=== PATIENT | female | born 1985 | race Caucasian/White ===

== ENCOUNTER 2017-07-15 21:29 | Emergency (ER) | payer OTHER ==
[~2017-07-15] VITALS: Ht 170.2 cm; Wt 77.6 kg
[2017-07-15] MEDS ORDERED: PRENATAL MULTI1 EAC3 PO (21:47)
[2017-07-15] MEDS ORDERED: VENTOLIN HFA18 GM INH (21:47)
== END 2017-07-15 22:29 | disposition home or self-care (01) ==
LOC: ED 21:29
DX: O99.712 Diseases of the skin and subcutaneous tissue complicating pregnancy, second trimester (principal); L29.9 Pruritus, unspecified; O99.342 Other mental disorders complicating pregnancy, second trimester; F31.9 Bipolar disorder, unspecified; F32.9 Major depressive disorder, single episode, unspecified; F41.9 Anxiety disorder, unspecified; O99.332 Smoking (tobacco) complicating pregnancy, second trimester; F17.200 Nicotine dependence, unspecified, uncomplicated; Z88.0 Allergy status to penicillin; Z88.1 Allergy status to other antibiotic agents; Z88.8 Allergy status to other drugs, medicaments and biological substances; Z79.899 Other long term (current) drug therapy; Z3A.20 20 weeks gestation of pregnancy
CPT/HCPCS: 99282

== ENCOUNTER 2023-09-24 21:25 | Emergency (ER) | payer OTHER ==
[~2023-09-24] VITALS: Ht 172.7 cm; Wt 87.0 kg
[~2023-09-24 21:25] MED LIST: PRENATAL MULTI1 EAC3 PO; VENTOLIN HFA18 GM INH
--- OUTSIDE RECORDS SUMMARY | 2023-09-24 21:26 | XMS ---
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 [place] VISIT COUNT (12 MO.) [address] [address] FILOMENA Ramírez TOTAL 14 NOTE: Visits indicate total known visits. ED/UCC VISIT TRACKING (12 MO.) 09/24/2023 21:26 [facility] [place] TYPE: Emergency COMPLAINT: - RT WRIST PAIN 09/24/2023 18:25 [email or web address] OR TYPE: Emergency DIAGNOSES: - Contusion of right forearm, initial encounter - r wrist pain 09/16/2023 11:47 [facility] DIAGNOSES: - Contusion of right upper arm, initial encounter - R ARM PAIN 09/13/2023 13:41 [facility] OR TYPE: Emergency DIAGNOSES: - Headache, unspecified - leg numbess, migraine 08/07/2023 13:54 [facility] OR TYPE: Emergency DIAGNOSES: - Pain in right hand - R HAND INJURY, TINGLING 07/06/2023 21:00 [facility] OR TYPE: Emergency DIAGNOSES: - Contusion of left knee, initial encounter - Strain of muscle, fascia and tendon of left hip, initial encounter - Unspecified sprain of left elbow, initial encounter - ELBOW INJURY 03/23/2023 15:31 [facility] [place] TYPE: Emergency DIAGNOSES: - Acute upper respiratory infection, unspecified - FATIGUE 03/21/2023 00:00 [facility] [place] TYPE: Emergency DIAGNOSES: - Diffuse otitis externa, left ear - Ear Pain 03/08/2023 17:26 [facility] TYPE: Emergency DIAGNOSES: - Strain of unspecified muscle, fascia and tendon at shoulder and upper arm level, left arm, initial encounter - Shoulder Injury 02/07/2023 16:35 [facility] TYPE: Emergency DIAGNOSES: - Acute nasopharyngitis [common cold] - LIGHT HEADED TINGLING HAND AND MOUTH FATIGUE 01/31/2023 21:24 [facility] [place] TYPE: Emergency DIAGNOSES: - Disorder of kidney and ureter, unspecified - Left lower quadrant pain - Abdominal Pain 01/19/2023 16:44 [email or web address] [place] TYPE: Emergency DIAGNOSES: - Other muscle spasm - NECK PAIN 12/21/2022 11:44 [facility] OR TYPE: Emergency DIAGNOSES: - Contusion of left ankle, subsequent encounter - LEFT ANKLE PAIN 12/08/2022 16:09 [facility] OR TYPE: Emergency DIAGNOSES: - Contusion of left ankle, initial encounter - L ANKLE INJURY INPATIENT VISIT TRACKING (12 MO.) No inpatient visits to display in this time frame [id number]
[2023-09-24] MEDS ORDERED: VENTOLIN HFA18 GM INH (21:46)
[2023-09-24] MEDS ORDERED: CETIRIZINE HCL10 MG PO (21:46)
[2023-09-24] MEDS ORDERED: LEXAPRO20 MG PO (21:46)
[2023-09-24] MEDS ORDERED: HYDROCODONE/ACETA 5/325 TAB PO ONE (22:00)
[2023-09-24] MEDS ORDERED: TRAMADOL HCL50 MG PO (22:39)
[2023-09-24] MEDS ORDERED: TRAMADOL HCL 50 MG HOME.PACK PO ONE (22:45)
[2023-09-24 22:55] VITALS: BP 120/87
== END 2023-09-24 22:55 | disposition home or self-care (01) ==
LOC: ED 21:25
DX: S63.501A Unspecified sprain of right wrist, initial encounter (principal); F17.200 Nicotine dependence, unspecified, uncomplicated; W23.0XXA Caught, crushed, jammed, or pinched between moving objects, initial encounter; Z88.0 Allergy status to penicillin; Z88.8 Allergy status to other drugs, medicaments and biological substances; Z79.899 Other long term (current) drug therapy
CPT/HCPCS: 73200; A9270

== ENCOUNTER 2023-10-10 19:54 | Emergency (ER) | payer OTHER ==
[~2023-10-10] VITALS: Ht 172.7 cm; Wt 90.0 kg
[~2023-10-10 19:54] MED LIST changes: +CETIRIZINE HCL10 MG PO; +LEXAPRO20 MG PO; +TRAMADOL HCL50 MG PO
--- OUTSIDE RECORDS SUMMARY | 2023-10-10 19:55 | XMS ---
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 [place] VISIT COUNT (12 MO.) [address] [address] FILOMENA Ramírez TOTAL 15 NOTE: Visits indicate total known visits. ED/UCC VISIT TRACKING (12 MO.) 10/10/2023 19:54 [facility] [place] TYPE: Emergency COMPLAINT: - ELBOW PAIN 09/24/2023 21:26 [facility] [place] TYPE: Emergency COMPLAINT: - RT WRIST PAIN DIAGNOSES: - Allergy status to other drugs, medicaments and biological substances - Allergy status to penicillin - Caught, crushed, jammed, or pinched between moving objects, initial encounter - Nicotine dependence, unspecified, uncomplicated - Other fpc (current) drug therapy - Pain in right wrist - Unspecified sprain of right wrist, initial encounter 09/24/2023 18:25 [facility] OR TYPE: Emergency DIAGNOSES: - Contusion of right forearm, initial encounter - r wrist pain 09/16/2023 11:47 [facility] [place] TYPE: Emergency DIAGNOSES: - Contusion of right upper arm, initial encounter - R ARM PAIN 09/13/2023 13:41 [facility] [place] TYPE: Emergency DIAGNOSES: - Headache, unspecified - leg numbess, migraine 08/07/2023 13:54 [facility]: Emergency DIAGNOSES: - Pain in right hand - R HAND INJURY, TINGLING 07/06/2023 21:00 [facility] [place] TYPE: Emergency DIAGNOSES: - Contusion of left knee, initial encounter - Strain of muscle, fascia and tendon of left hip, initial encounter - Unspecified sprain of left elbow, initial encounter - ELBOW INJURY 03/23/2023 15:31 [facility] [place] TYPE: Emergency DIAGNOSES: - Acute upper respiratory infection, unspecified - FATIGUE 03/21/2023 00:00 [facility] [place] TYPE: Emergency DIAGNOSES: - Diffuse otitis externa, left ear - Ear Pain 03/08/2023 17:26 [facility] [place] TYPE: Emergency DIAGNOSES: - Strain of unspecified muscle, fascia and tendon at shoulder and upper arm level, left arm, initial encounter - Shoulder Injury 02/07/2023 16:35 [facility] OR TYPE: Emergency DIAGNOSES: - Acute nasopharyngitis [common cold] - LIGHT HEADED TINGLING HAND AND MOUTH FATIGUE 01/31/2023 21:24 [facility] OR TYPE: Emergency DIAGNOSES: - Disorder of kidney and ureter, unspecified - Left lower quadrant pain - Abdominal Pain 01/19/2023 16:44 [facility] OR TYPE: Emergency DIAGNOSES: - Other muscle spasm - NECK PAIN 12/21/2022 11:44 [facility] OR TYPE: Emergency DIAGNOSES: - Contusion of left ankle, subsequent encounter - LEFT ANKLE PAIN 12/08/2022 16:09 [facility] OR TYPE: Emergency DIAGNOSES: - Contusion of left ankle, initial encounter - L ANKLE INJURY INPATIENT VISIT TRACKING (12 MO.) No inpatient visits to display in this time frame [id number]
[2023-10-10] MEDS ORDERED: TRAMADOL HCL 50 MG TAB PO ONE (20:15)
[2023-10-10] MEDS ORDERED: MELOXICAM15 MG PO (20:33)
[2023-10-10 20:45] VITALS: BP 129/84
[2023-10-10] MEDS ORDERED: TRAMADOL HCL 50 MG HOME.PACK PO ONE (20:45)
== END 2023-10-10 20:45 | disposition home or self-care (01) ==
LOC: ED 19:54
DX: S50.02XA Contusion of left elbow, initial encounter (principal); F17.200 Nicotine dependence, unspecified, uncomplicated; W19.XXXA Unspecified fall, initial encounter; Z88.0 Allergy status to penicillin; Z88.8 Allergy status to other drugs, medicaments and biological substances; Z79.899 Other long term (current) drug therapy
CPT/HCPCS: 73080; 99283; A9270